=== PATIENT | male | born 1990 | race Hispanic/Latino ===

== ENCOUNTER 2025-07-09 20:08 | Emergency (ER) | payer OTHER ==
[~2025-07-09] VITALS: Ht 175.3 cm; Wt 95.3 kg
[2025-07-09 22:25] VITALS: PULSE 92; RESP 18; TEMP 98.3
[2025-07-10 02:09] LABS: BASOPHILS % 0.3 % (0.0-1.0); EOSINOPHILS % 1.0 % (0.0-6.0); LYMPHOCYTES % 24.6 % (18.0-39.1); MONOCYTES % 8.3 % (4.4-11.3); NEUTROPHILS % 65.4 % (38.7-80.0); RED CELL DISTRIBUTION WIDTH 12.3 % (11.7-14.4)
[2025-07-10 02:16] LABS: LEUKOCYTE ESTERASE ,URINE NEGATIVE (NEGATIVE); PROTEIN,URINE DIPSTICK NEGATIVE (NEGATIVE); URINE UROBILINOGEN 0.2 mg/dL (0.2 - 1)
[2025-07-10] MEDS: KETOROLAC TROMETHAMINE 30 MG/ML VIAL IV STA (02:17)
[2025-07-10 02:22] LABS: EPITHELIAL CELLS,URINE FEW /LPF
[2025-07-10 02:32] LABS: EST GLOMERULAR FILTRATION RATE 119.0 ML/MIN (>=60)
[2025-07-10] MEDS ORDERED: IOPAMIDOL 370 MG/ML 100 ML INFUS..BTL INJ ONE (03:03)
[2025-07-10] MEDS ORDERED: METRONIDAZOLE500 MG PO (04:13)
[2025-07-10] MEDS ORDERED: CIPRO500 MG PO (04:13)
[2025-07-10 05:23] VITALS: BP 130/74; PULSE 80; RESP 20; O2SAT 100
== END 2025-07-10 04:28 | disposition home or self-care (01) ==
LOC: ER 07-10 01:42
DX: R10.31 Right lower quadrant pain (principal); K57.32 Diverticulitis of large intestine without perforation or abscess without bleeding; R16.0 Hepatomegaly, not elsewhere classified
CPT/HCPCS: 36415; 74177; 80053; 81001; 85025; 99284; J1885; Q9967